=== PATIENT | male | born 1950 | race Two or more races ===

== ENCOUNTER 2021-01-26 07:30 | Emergency (ER) | payer OTHER ==
[~2021-01-26] VITALS: Ht 160 cm; Wt 75.7 kg
[2021-01-26] MEDS ORDERED: AZOR 10-20 MG1 EACH (07:51)
[2021-01-26] MEDS ORDERED: COZAAR100 MG (07:51)
[2021-01-26] MEDS ORDERED: OMEPRAZOLE20 M1 (07:51)
== END 2021-01-26 11:51 | disposition home or self-care (01) ==
LOC: ER 07:30
DX: R22.32 Localized swelling, mass and lump, left upper limb (principal); M25.522 Pain in left elbow